=== PATIENT | female | born 1955 | race Caucasian/White ===

== ENCOUNTER 2018-08-22 13:10 | Emergency (ER) | payer MEDICARE, OTHER ==
[~2018-08-22] VITALS: Ht 172.7 cm; Wt 111.1 kg
[2018-08-22] MEDS ORDERED: LIDOCAINE 1% INJ 20 ML 20 ML VIAL INJ ONE (13:45)
[2018-08-22] MEDS ORDERED: TETANUS,DIPTH,PERTUSS P/F (BOOSTRIX) 0.5 ML VIAL IM ONE (13:45)
--- NOTE | 2018-08-22 14:21 | ED Upper Extremity ---
General Chief Complaint: Laceration Stated Complaint: LT HAND LAC Nursing Triage Note: Patient c/o laceration to left hand. States she was trying to open a glass bottle with a screwdriver when it slipped puncturing her hand and then she cut it on the glass. Nursing Sepsis Screen: No Definite Risk Source: patient, RN notes reviewed Exam Limitations: no limitations History of Present Illness Date Seen by Provider: August 22, 2018 Time Seen by Provider: 13:30 Initial Comments Patient presents c/ c/o a laceration to her left hand sustained on a piece of glass. Onset: just prior to arrival Pain/Injury Location: left hand Method of Injury: incised Modifying Factors: Worse With Movement Allergies and Home Medications Allergies Uncoded Allergies: PENICILLIN (Allergy, Unknown, 08/22/18) Patient Home Medication List Home Medication List Reviewed: Yes Review of Systems Constitutional: see HPI Skin: see HPI, change in hair/nails, other (laceration left hand) All Other Systems Reviewed Negative Unless Noted: Yes (Negative excepted noted.) Past Sdoziaq-[id number]-Inyfhg Hx Patient Social History Alcohol Use: Occasionally Uses Alcohol Beverage of Choice: Beer Recreational Drug Use: No Smoking Status: Never a Smoker 2nd Hand Smoke Exposure: No Recent Foreign Travel: No Contact w/Someone Who Travel: No Recent Infectious Disease Expo: No Recent Hopitalizations: No Physical Abuse: No Sexual Abuse: No Mistreated: No Fear: No Seasonal Allergies Seasonal Allergies: No Past Medical History Surgeries: Yes (Sandi Guzman, ) Gallbladder, Hysterectomy, Orthopedic Respiratory: Yes COPD Cardiac: Yes (CHF) Hypertension PREVENTION RN History: Hysterectomy Genitourinary: Yes Gastrointestinal: No Musculoskeletal: Yes Chronic Back Pain Endocrine: Yes Diabetes, Non-Insulin dep HEENT: No Cancer: No Psychosocial: Yes Anxiety, Depression Integumentary: No Blood Disorders: No Physical Exam Vital Signs Vital Signs - First Documented 08/22/18 13:24 Temp 97.5 Pulse 100 Resp 18 B/P (MAP) 109/80 (90) Pulse Ox 94 O2 Delivery Room Air Capillary Refill : Less Than 3 Seconds Height, Weight, BMI Height: 5'8.00" Weight: 245lbs. oz. [id number]; BMI Method:Stated General Appearance: WD/WN, mild distress, obese Cardiovascular: tachycardia Respiratory: no respiratory distress Hand: Left, laceration, limited ROM, soft tissue tenderness Neurologic/Tendon: normal sensation, normal motor functions, normal tendon functions, responds to pain Neurologic/Psychiatric: no motor/sensory deficits, alert, oriented x 3 Skin: warm/dry Procedures/Interventions Wound Location: Upper Extremities (left hand) Wound Length (cm): 3.5 Wound's Depth, Shape: linear, sub Q Wound Explored: no foreign body removed Betadine Prep?: No Anesthesia: 1% Lidocaine Suture: Ethlion Suture Size: 4-0 Sterile Dressing Applied?: Yes Progress/Results/Core Measures Results/Orders My Orders Medications Given in ED Vital Signs/I&O Blood Pressure Mean: 90 Departure Impression Primary Impression: Laceration of hand Disposition: 01 HOME, SELF-CARE Condition: Improved Departure-Patient Inst. Decision time for Depature: 14:19 Referrals: [facility]/JANETH (PCP) Primary Care Physician SHIRA TOMAS APRN (Family) Primary Care Physician Patient Instructions: Laceration Repair With Stitches (DC) Add. Discharge Instructions: All discharge instructions reviewed with patient and/or family. Voiced understanding. NEED TO HAVE YOUR STITCHES REMOVED IN 10 DAYS. MAY TAKE 400 mg OF IBUPROFEN &/OR 1000 mg OF TYLENOL EVERY 6 HOURS NEEDED FOR ANY DISCOMFORT. DO NOT EXCEED 4000 mg OF TYLENOL IN A 24 HOUR PERIOD. GLENROY SUE DO August 22, 2018 14:21
[2018-08-22 14:33] VITALS: BP 120/66
== END 2018-08-22 14:33 | disposition home or self-care (01) ==
LOC: ER FS 13:12
DX: S61.412A Laceration without foreign body of left hand, initial encounter (principal); J44.9 Chronic obstructive pulmonary disease, unspecified; I11.0 Hypertensive heart disease with heart failure; I50.9 Heart failure, unspecified; E11.9 Type 2 diabetes mellitus without complications; F41.9 Anxiety disorder, unspecified; F32.9 Major depressive disorder, single episode, unspecified; Z23 Encounter for immunization; Z88.0 Allergy status to penicillin; Z90.710 Acquired absence of both cervix and uterus; Z98.890 Other specified postprocedural states; W27.8XXA Contact with other nonpowered hand tool, initial encounter
CPT/HCPCS: 12002; 64450; 90471; 90715